=== PATIENT | male | born 1955 | race Asian ===

== ENCOUNTER 2019-04-17 08:31 | Outpatient (CLI) | payer BC ==
[2019-04-17 09:23] LABS: Estimated GFR-MDRD - POC Greater than 90
[2019-04-17] MEDS ORDERED: Gadobenate Dimeglumine 529 MG/1 ML (20ML VIAL) ONE (11:03)
--- NOTE | 2019-04-17 11:04 | MRI ---
EXAM: MRI of the pelvis/prostate without and with contrast HISTORY: elevated PSA COMPARISON: None TECHNIQUE: Multiplanar multisequence MR images were obtained of the pelvis without and with IV contra st. Evaluation of this exam was performed with a [employer] workstation. FINDINGS: Central gland: Moderate hypertrophy of the central gland consistent with BPH. No suspicious low T2 si gnal lesion is seen. Peripheral zone: No restricted diffusion is seen. No low signal on ADC map. Seminal vesicles: Intact without abnormality Neurovascular bundles: Intact Pelvic lymph nodes: No pelvic adenopathy Other visualized intrapelvic structures: Unremarkable Osseous structures: Heterogeneous appearance of the bone marrow without obvious enhancing lesions. 2. 1 cm right hip synovial cyst. IMPRESSION: PI-RADS Category 2-low likelihood that a clinically significant cancer is present.
== END 2019-04-17 08:32 | disposition home or self-care (01) ==
LOC: TBSIIMAG 08:31
PROVIDERS: ATTEND Urology
DX: R97.20 Elevated prostate specific antigen [PSA] (principal)
CPT/HCPCS: 72197; 82565; A9577